=== PATIENT | male | born 1995 | race Caucasian/White ===

== ENCOUNTER 2021-11-10 19:34 | Emergency (ER) | payer OTHER, SELFPAY ==
[2021-11-10 19:42] VITALS: BP 117/80; PULSE 76; RESP 18; TEMP 37.2; O2SAT 100; BMI 20.2
[2021-11-10 20:35] LABS: Strep A DNA Probe* Not Detected (No Detected)
--- NOTE | 2021-11-10 20:44 | ED.GENADULT ---
HPI - General Adult General Chief complaint: Sore Throat Stated complaint: Sharp Throat Pain Time Seen by Provider: 11/10/21 19:39 History of Present Illness HPI narrative: This 25-year-old male comes in reporting sore throat with occasional cough and some nasal congestion. This began a couple days ago. The pain is significantly worse today. He states that he had a fever yesterday but arrives today with normal temperature. He does not report any shortness of breath. He states that he had COVID about a month ago and recovered from those symptoms. Related Data Previous Rx's Medication Instructions Recorded ketorolac 10 mg tablet 10 mg PO Q8H 5 days #15 tabs 11/10/21 Allergies Allergy/AdvReac Type Severity Reaction Status Date / Time No Known Drug Allergies Allergy Verified 11/10/21 19:45 Review of Systems Status of ROS: Reports: 10 or more systems reviewed and unremarkable except as noted in History and below Narrative: Constitutional: No fevers, no weight gain or loss. Eyes: No discharge. No vision changes. HENT: Sore throat. Mild nasal congestion. Cardiovascular: No chest pain, no palpitations. Respiratory: No shortness of breath, no wheezes, occasional cough. Gastrointestinal: No abdominal pain, no vomiting, no diarrhea. Genitourinary: No dysuria, no hematuria. Musculoskeletal: Normal range of motion. Skin: No rashes, no pruritis. Neurological: No dizziness, weakness, sensory change, speech change. Endo/Heme/Allergies: No bruising or bleeding. No polydipsia. Pysch: no suicidality, no anxiety, no insomnia. All other systems reviewed and are negative. PFSH PFSH Social History Smoking Status: Current every day smoker How often do you have a drink containing alcohol: 2-4 times a month AUDIT-C Alcohol total score: 2 Non-prescribed substance use: denies use Exam Narrative: Exam Narrative: Constitutional: Well-developed, well-nourished, no acute distress. HEENT: Normocephalic, atraumatic. Oropharynx shows erythema without sign of tonsillar hypertrophy or exudate. There is no unilateral swelling. Neck: Normal range of motion. Nontender. Supple. Heart: Regular. No murmurs. Normal rate. Intact distal pulses. Lungs: Clear to auscultation. No chest discomfort. No wheezes, rhonchi, or rales. Abdomen: Normal bowel sounds. Nontender. No rebound tenderness. Genitalia: Deferred. Back: No midline tenderness. Normal range of motion. Extremities: Normal range of motion. No injury. Skin: Intact. No rash. Warm. No erythema or pallor. Neurologic: No altered sensation. No weakness. Alert and oriented. Psychiatric: No suicidality. No anxiety or depression. No insomnia. Nursing notes and vitals signs are reviewed. Const: Vital Signs, click to edit/add: Vital Signs - 24 hr 11/10/21 19:42 Temperature 99.0 F Pulse Rate [Left P ulse Oximeter] 76 Respiratory Rate 18 Blood Pressure [Ri ght Upper Arm] 117/80 Pulse Oximetry 100 Oxygen Delivery Me thod Room Air Course Vital Signs Vital signs: Initial Vital Signs Temperature 99.0 F 11/10/21 19:42 Temperature Source Temporal Artery Scan 11/10/21 19:42 Pulse Rate 76 11/10/21 19:42 Respiratory Rate 18 11/10/21 19:42 Blood Pressure 117/80 11/10/21 19:42 Blood Pressure Mean 92 11/10/21 19:42 Blood Pressure Position Supine 11/10/21 19:42 Pulse Oximetry 100 11/10/21 19:42 Oxygen Delivery Method 11/10/21 19:42 Vital Signs Temperature 99.0 F 11/10/21 19:42 Pulse Rate 76 11/10/21 19:42 Respiratory Rate 18 11/10/21 19:42 Blood Pressure 117/80 11/10/21 19:42 Pulse Oximetry 100 11/10/21 19:42 Oxygen Delivery Method 11/10/21 19:42 Temperature 99.0 F 11/10/21 19:42 Pulse Rate 76 11/10/21 19:42 Respiratory Rate 18 11/10/21 19:42 Blood Pressure 117/80 11/10/21 19:42 Pulse Oximetry 100 11/10/21 19:42 Oxygen Delivery Method 11/10/21 19:42 Medical Decision Making MDM Narrative Medical decision making narrative: This patient comes in with sore throat as described above. A rapid strep test is completed and returns with negative findings. Most likely this patient's symptoms are related to a viral infection. He did receive a prescription for Toradol. I advised him to follow-up with his primary physician if not improving or worsening. Lab Data Labs: Lab Results 11/10/21 Range/Units 19:55 Group A Strep DNA Not Detected (No Detected) Discharge Plan Discharge Clinical Impression: Acute viral pharyngitis Patient Disposition: Home, Self-Care Condition: Stable Additional Instructions: Use prescribed medicine as needed and directed. Follow up with MD or return if worsening symptoms occur. Prescriptions: New ketorolac 10 mg tablet 10 mg PO Q8H 5 Days Qty: 15 0RF Follow Up/Referrals: Lexii James MD [Primary Care Provider] - Stand Alone Forms: [employer] Info Instructions
== END 2021-11-10 21:27 | disposition home or self-care (01) ==
PROVIDERS: Emergency Provider Emergency Medicine Emergency Medical Services; PCP Family Medicine
DX: J02.9 Acute pharyngitis, unspecified (principal)
CPT/HCPCS: 87651; 99283; 99284

== ENCOUNTER 2023-05-31 18:25 | Outpatient (CLI) | payer OTHER, SELFPAY | END 2023-05-31 18:26 | disposition home or self-care (01) | LOC: NFLDUCREF 18:28 | PROVIDERS: PCP Family Medicine; Visit Provider Nurse Practitioner Family | DX: R74.01 Elevation of levels of liver transaminase levels (principal); R07.9 Chest pain, unspecified; Z79.899 Other long term (current) drug therapy | CPT/HCPCS: 80053; 84484 ==